=== PATIENT | male | born 2000 | race Two or more races ===

== ENCOUNTER 2023-07-25 20:42 | Emergency (ER) | payer OTHER ==
[~2023-07-25] VITALS: Ht 185.4 cm; Wt 86.2 kg
[~2023-07-25 20:42] MED LIST: AMOX-CLAV 875-1 EACH PO; ORASEP SPRAY30 ML MM
[2023-07-25] MEDS ORDERED: KETOROLAC TROMETHAMINE 30 MG VIAL IM ONE (21:15)
[2023-07-25] MEDS ORDERED: ORPHENADRINE CITRATE 30 MG/ML AMPUL IM ONE (21:15)
== END 2023-07-25 22:31 | disposition home or self-care (01) ==
LOC: ER 20:43
DX: M54.9 Dorsalgia, unspecified (principal)

== ENCOUNTER 2023-07-27 08:05 | Emergency (ER) | payer OTHER ==
[~2023-07-27] VITALS: Ht 185.4 cm; Wt 81.6 kg
[2023-07-27] MEDS ORDERED: DEXAMETHASONE SODIUM PHOSPHATE 4 MG/ML VIAL IV STA (08:26)
[2023-07-27] MEDS ORDERED: KETOROLAC TROMETHAMINE 30 MG VIAL IV STA (08:27)
== END 2023-07-27 10:09 | disposition home or self-care (01) ==
LOC: ER 08:06
DX: M54.50 Low back pain, unspecified (principal); R25.2 Cramp and spasm

== ENCOUNTER → 2023-11-12 | Emergency (ER) | payer OTHER ==
[~2023-11-12] VITALS: Ht 185.4 cm; Wt 83.9 kg
[~2023-11-12] MED LIST changes: +FAMOTIDINE/PF 20 MG/2 ML VIAL ONE; +FAMOtidine 10 MG/ML (4ML VIAL) IV PUSH STA
== END | disposition home or self-care (01) ==
LOC: ER 15:37
DX: K29.70 Gastritis, unspecified, without bleeding (principal)